=== PATIENT | male | born 1955 | race Caucasian/White ===

== ENCOUNTER → 2020-12-18 | Outpatient (CLI) | payer MEDICARE, BC ==
--- NOTE | 2020-12-19 08:44 | KCIC ---
EXAM: MRI RIGHT ELBOW DATE: 12/18/2020 2:35 PM CLINICAL INDICATION: Reason: RIGHT ELBOW PAIN / Spl. Instructions: / History: Progressing lateral ri ght elbow pain for months. Pain is sharp at times. COMPARISON: None. TECHNIQUE: Multiplanar, multisequence MR imaging of the right elbow was performed without IV contrast . FINDINGS: Small elbow joint effusion. Mild increased signal and thickening of the common extensor tendon origin. The radial collateral liga ment and lateral ulnar collateral ligaments are grossly intact although mildly increased in signal of the humeral attachment. There is mild increased signal and thickening at the humeral attachment of the ulnar collateral ligam ent. Biceps tendon is intact with normal signal and morphology. Triceps tendon is intact with normal signal and morphology. Forearm muscle groups are intact, grossly normal muscle bulk and signal without fatty atrophy. Ulnar nerve is intact and the visualized segment. Jointline preserved; articular cartilage preserved. Negative osteochondral lesion. Small ganglion cys t appears to arise from the anterior humeral joint measuring 1 x 0.8 x 1.2 cm. Normal bone marrow signal without edema, fracture or AVN. IMPRESSION: 1. Mild increased signal and thickening at the common extensor tendon origin likely lateral epicondy litis without associated full-thickness or partial-thickness tear.. 2. Mild increased signal and thickening at the humeral attachment of the ulnar collateral ligament a nd common flexor tendon, suspicious for medial epicondylitis. No full-thickness or partial-thickness tear. 3. Small ganglion at the anterior radiohumeral joint measures 1.2 cm. Electronically signed by: Gio Villegas MD (12/19/2020 8:41 AM) [place]
== END ==
LOC: KCIC MRI 14:18
PROVIDERS: ATTEND Internal Medicine
DX: M25.421 Effusion, right elbow (principal); M67.421 Ganglion, right elbow
CPT/HCPCS: 73221